=== PATIENT | male | born 1980 | race Caucasian/White ===

== ENCOUNTER 2021-01-06 12:56 | Emergency (ER) | payer BC, MEDICAID ==
[2021-01-06 13:27] LABS: Absolute Neutrophil Ct (ANC) 3.49 (1.4-6.9); BASOPHIL % 0.4 % (0.0-0.4); Basophil (Absolute #) 0.02 (0-0.4); Eosinophil % 3.2 % (0.00-5.0); Eosinophil (Absolute #) 0.17 (0-0.5); Hematocrit 48.6 % (42-50); Hemoglobin 16.2 gm/dl (12.5-18.0); Lymphocyte (Absolute #) 1.21 (1.0-4.6); Lymphocytes % 22.6 % (24.0-44.0); Mean Corpuscular Hgb Concent. 33.3 g/dl (32-36); Mean Platelet Volume 10.3 fl (7.5-11.0); Monocyte (Absolute #) 0.46 (0.0-1.3); Monocytes % 8.6 % (0.0-12.0); Neutrophil % 65.2 % (36.0-66.0); Platelet Count 176 K/mm3 (150-450); Red Cell Distribution Width 13.4 % (11.5-14.0); White Blood Count 5.4 K/mm3 (4.0-10.5)
--- NOTE | 2021-01-06 13:33 | XRAY ---
Indication: Chest/rib pain. Comparison: None Portable apical lordotic chest demonstrates normal heart and lungs. Bony thorax intact.
[2021-01-06 13:48] LABS: ALBUMIN 4.5 g/dL (3.5-5.0); ALKALINE PHOSPHATASE 56 U/L (38-126); ANION GAP 10.5 MEQ/L (5-15); BLOOD UREA NITROGEN 12 mg/dL (9-20); CHLORIDE 101 mmol/L (98-107); Calcium 9.3 mg/dL (8.4-10.2); Carbon Dioxide 29 mmol/L (22-30); Creatinine 1 0.89 mg/dL (0.66-1.25); EST GLOMERULAR FILTRATION RATE > 60.0 ML/MIN; Glucose 123 mg/dL (74-106); LIPASE 99 U/L (23-300); MAGNESIUM 2.1 mg/dL (1.6-2.3); NT PRO BNP 27.3 pg/mL (0-450); Potassium 3.8 mmol/L (3.5-5.1); SGOT/AST 28 U/L (17-59); SGPT/ALT 25 U/L (0-50); SODIUM 136 mmol/L (137-145); Total Protein 7.2 g/dL (6.3-8.2)
--- NOTE | 2021-01-06 13:59 | ERPHSYRPT ---
- History of Present Illness Time Seen by Provider: 01/06/21 13:10 Historian: patient Exam Limitations: no limitations Patient Subjective Stated Complaint: chest pain, rib pain, chest tightness, body aches, worn out Triage Nursing Assessment: pt to ED c/o chest pain at lower chest onset last night, reports tightness/heaviness across chest that started while mowing. pt rates 2/10 and reports the pain radiates "everywhere." c/o body aches and fat igue. heart sounds clear. lungs clear and equal bilaterally. Physician History: Patient is a 40-year-old male, smoker, presents to our ED with complaints of lower chest pain. Pain described as an ache heaviness sensation that is localized. However patient states the pain occasionally radiates everywhere. Patient describes associated body aches with generalized fatigue. Pain started yesterday while mowing. Patient rates the pain 2 out of 10. Symptoms are mild to moderate in intensity. No associated fever. No known Covid exposures. Patient is otherwise healthy. He voices no other complaints or concerns at this time. Timing/Duration: yesterday Activities at Onset: activity Quality: aching, pressure Location: substernal Chest Pain Radiation: abdomen Severity of Pain-Max: moderate Severity of Pain-Current: mild Modifying Factors: Improves With: nothing Associated Symptoms: denies symptoms, No nausea, No vomiting, No palpitations, No cough Prior Chest Pain/Cardiac Workup: no prior chest pain Nitro Today/Relief: no nitro taken today Aspirin Treatment Today: no aspirin today Allergies/Adverse Reactions: No Known Drug Allergies Allergy (Verified 01/06/21 13:15) Home Medications: No Reportable Medications [No Reported Medications] 01/06/21 [History] Hx Tetanus, Diphtheria Vaccination/Date Given: No Hx Influenza Vaccination/Date Given: No Hx Pneumococcal Vaccination/Date Given: No Immunizations Up to Date: No Travel Risk - International Travel Have you traveled outside of the country in past 3 weeks: No - Coronavirus Screening Are you exhibiting any of the following symptoms?: Yes Symptoms: Headaches/Body Aches/Fatigue Close contact with a COVID-19 positive Pt in past 14-21 Days: Yes - Vaccine Status Have you recieved a Covid-19 vaccination: No - Review of Systems Constitutional: No Symptoms, No Fever, No Chills Eyes: No Symptoms Ears, Nose, & Throat: No Symptoms Respiratory: No Symptoms, No Cough, No Dyspnea Cardiac: No Symptoms, No Chest Pain, No Edema, No Syncope Abdominal/Gastrointestinal: No Symptoms, No Abdominal Pain, No Nausea, No Vomiting, No Diarrhea Genitourinary Symptoms: No Symptoms, No Dysuria Musculoskeletal: No Symptoms, No Back Pain, No Neck Pain Skin: No Symptoms, No Rash Neurological: No Symptoms, No Dizziness, No Focal Weakness, No Sensory Changes Psychological: No Symptoms Endocrine: No Symptoms Hematologic/Lymphatic: No Symptoms Immunological/Allergic: No Symptoms All Other Systems: Reviewed and Negative - Past Medical History Pertinent Past Medical History: No - Past Surgical History Past Surgical History: Yes Genitourinary: Other Other Surgical History: kidney stone - Social History Smoking Status: Current every day smoker How long have you smoked: years Exposure to second hand smoke: Yes Drug Use: marijuana, other Patient Lives Alone: No - Nursing Vital Signs Nursing Vital Signs: Initial Vital Signs Temperature 98.7 F 01/06/21 13:03 Pulse Rate 80 01/06/21 13:03 Respiratory Rate 16 01/06/21 13:03 O2 Sat by Pulse Oximetry 97 01/06/21 13:03 Pain Scale Pain Intensity 2 - Physical Exam General Appearance: no apparent distress, alert Eye Exam: PERRL/EOMI, eyes nml inspection Ears, Nose, Throat Exam: normal ENT inspection, TMs normal, pharynx normal, moist mucous membranes Neck Exam: normal inspection, non-tender, supple, full range of motion Respiratory Exam: normal breath sounds, lungs clear, No respiratory distress Cardiovascular Exam: regular rate/rhythm, normal heart sounds Gastrointestinal/Abdomen Exam: soft, No tenderness, No mass Back Exam: normal inspection, No CVA tenderness, No vertebral tenderness Extremity Exam: normal inspection, normal range of motion Neurologic Exam: alert, oriented x 3, cooperative, normal mood/affect, sensation nml, No motor deficits Skin Exam: normal color, warm, dry SpO2 Interpretation: normal SpO2: 95 O2 Delivery: Room Air - Course Nursing assessment & vital signs reviewed: Yes EKG Interpreted by Me: RATE (76), Sinus Rhythm, LAFB, Right Bundle Branch Block - Radiology Exams Chest X-ray Interpretation: Teleradiologist Report (Normal heart lungs. Bony thorax intact.) Ordered Tests: Active Orders 24 hr Category Date Time Status AMA [Release AMA] OM.NOW Care 01/06/21 15:46 Ordered Fryline Attendant STAT Care 01/06/21 13:02 Active EKG-ER Only STAT Care 01/06/21 13:01 Active IV Insertion STAT Care 01/06/21 13:01 Active Pulse Oximetry (ED) STAT Care 01/06/21 13:01 Active CHEST 1 VIEW (PORTABLE) Stat Exams 01/06/21 13:01 Completed CBC W DIFF Stat Lab 01/06/21 13:25 Completed CK (IN-HOUSE) [CK-Creatinine Phosphokinase] Stat Lab 01/06/21 13:59 Completed CMP Stat Lab 01/06/21 13:25 Completed D-DIMER QUANTITATIVE Stat Lab 01/06/21 13:25 Completed LIPASE Stat Lab 01/06/21 13:25 Completed MAGNESIUM Stat Lab 01/06/21 13:25 Completed NT PRO BNP Stat Lab 01/06/21 13:25 Completed TROPONIN Q3H Lab 01/06/21 13:25 Completed TROPONIN Q3H Lab 01/06/21 16:15 Ordered TROPONIN Q3H Lab 01/06/21 19:15 Ordered TROPONIN Q3H Lab 01/06/21 22:15 Ordered TROPONIN Q3H Lab 01/07/21 01:15 Ordered UA W/RFX UR CULTURE Stat Lab 01/06/21 14:12 Completed Urine Triage Profile Stat Lab 01/06/21 14:12 Completed Medication Summary Discontinued Medications Generic Name Dose Route Start Last Admin Trade Name Freq PRN Reason Stop Dose Admin Al Hydrox/Mg Hydrox/Simethicone Confirm 01/06/21 14:07 Maalox Es 30 Ml Unit Dose Administered 01/06/21 14:08 Dose 30 ml .ROUTE .STK-MED ONE Lidocaine HCl Confirm 01/06/21 14:07 Xylocaine Hcl Viscous * Administered 01/06/21 14:08 Dose 15 ml .ROUTE .STK-MED ONE Magnesium Hydroxide 45 ml 01/06/21 14:06 01/06/21 14:09 Gi Cocktail 45 Ml (Maalox/Lidocaine) PO 01/06/21 14:07 45 ml STAT ONE Administration Lab/Rad Data: Laboratory Result Diagrams 01/06/21 13:25 01/06/21 13:25 Laboratory Results 01/06/21 01/06/21 01/06/21 Range/Units 14:12 14:12 13:59 WBC (4.0-10.5) K/mm3 RBC (4.1-5.6) M/mm3 Hgb (12.5-18.0) gm/dl Hct (42-50) % MCV (78-100) fl MCH (26-32) pg MCHC (32-36) g/dl RDW (11.5-14.0) % Plt Count (150-450) K/mm3 MPV (7.5-11.0) fl Gran % (36.0-66.0) % Eos # (Auto) (0-0.5) Absolute Lymphs (auto) (1.0-4.6) Absolute Monos (auto) (0.0-1.3) Lymphocytes % (24.0-44.0) % Monocytes % (0.0-12.0) % Eosinophils % (0.00-5.0) % Basophils % (0.0-0.4) % Absolute Granulocytes (1.4-6.9) Basophils # (0-0.4) D-Dimer (215-500) ng/mL Sodium (137-145) mmol/L Potassium (3.5-5.1) mmol/L Chloride (98-107) mmol/L Carbon Dioxide (22-30) mmol/L Anion Gap (5-15) MEQ/L BUN (9-20) mg/dL Creatinine (0.66-1.25) mg/dL Estimated GFR ML/MIN Glucose (74-106) mg/dL Calcium (8.4-10.2) mg/dL Magnesium (1.6-2.3) mg/dL Total Bilirubin (0.2-1.3) mg/dL AST (17-59) U/L ALT (0-50) U/L Alkaline Phosphatase (38-126) U/L Creatine Kinase 263 H (55-170) U/L Troponin I (0.000-0.034) ng/mL NT-Pro-B Natriuret Pep (0-450) pg/mL Serum Total Protein (6.3-8.2) g/dL Albumin (3.5-5.0) g/dL Lipase (23-300) U/L Urine Color YELLOW (YELLOW) Urine Appearance CLEAR (CLEAR) Urine pH 6.0 (5-6) Ur Specific [place] 1.009 (1.005-1.025) Urine Protein NEGATIVE (Negative) Urine Ketones NEGATIVE (NEGATIVE) Urine Blood NEGATIVE (0-5) Fritz/ul Urine Nitrite NEGATIVE (NEGATIVE) Urine Bilirubin NEGATIVE (NEGATIVE) Urine Urobilinogen NEGATIVE (0-1) mg/dL Ur Leukocyte Esterase NEGATIVE (NEGATIVE) Urine WBC (Auto) NONE (0-5) /HPF Urine RBC (Auto) NONE (0-2) /HPF U Epithel Cells (Auto) NONE (FEW) /HPF Urine Bacteria (Auto) NONE (NEGATIVE) /HPF Urine Mucus (Auto) SLIGHT (NEGATIVE) /HPF Urine Culture Reflexed NO (NO) Urine Glucose NEGATIVE (NEGATIVE) mg/dL Urine Opiates Level POSITIVE (NEGATIVE) Ur Methadone NEGATIVE (NEGATIVE) Urine Barbiturates NEGATIVE (NEGATIVE) Ur Phencyclidine (PCP) NEGATIVE (NEGATIVE) Urine Amphetamine POSITIVE (NEGATIVE) U Benzodiazepine Level NEGATIVE (NEGATIVE) Urine Cocaine NEGATIVE (NEGATIVE) Urine Marijuana (THC) POSITIVE (NEGATIVE) 01/06/21 01/06/21 01/06/21 Range/Units 13:25 13:25 13:25 WBC (4.0-10.5) K/mm3 RBC (4.1-5.6) M/mm3 Hgb (12.5-18.0) gm/dl Hct (42-50) % MCV (78-100) fl MCH (26-32) pg MCHC (32-36) g/dl RDW (11.5-14.0) % Plt Count (150-450) K/mm3 MPV (7.5-11.0) fl Gran % (36.0-66.0) % Eos # (Auto) (0-0.5) Absolute Lymphs (auto) (1.0-4.6) Absolute Monos (auto) (0.0-1.3) Lymphocytes % (24.0-44.0) % Monocytes % (0.0-12.0) % Eosinophils % (0.00-5.0) % Basophils % (0.0-0.4) % Absolute Granulocytes (1.4-6.9) Basophils # (0-0.4) D-Dimer < 215 L (215-500) ng/mL Sodium 136 L (137-145) mmol/L Potassium 3.8 (3.5-5.1) mmol/L Chloride 101 (98-107) mmol/L Carbon Dioxide 29 (22-30) mmol/L Anion Gap 10.5 (5-15) MEQ/L BUN 12 (9-20) mg/dL Creatinine 0.89 (0.66-1.25) mg/dL Estimated GFR > 60.0 ML/MIN Glucose 123 H (74-106) mg/dL Calcium 9.3 (8.4-10.2) mg/dL Magnesium 2.1 (1.6-2.3) mg/dL Total Bilirubin 0.50 (0.2-1.3) mg/dL AST 28 (17-59) U/L ALT 25 (0-50) U/L Alkaline Phosphatase 56 (38-126) U/L Creatine Kinase (55-170) U/L Troponin I < 0.012 (0.000-0.034) ng/mL NT-Pro-B Natriuret Pep 27.3 (0-450) pg/mL Serum Total Protein 7.2 (6.3-8.2) g/dL Albumin 4.5 (3.5-5.0) g/dL Lipase 99 (23-300) U/L Urine Color (YELLOW) Urine Appearance (CLEAR) Urine pH (5-6) Ur Specific [place] (1.005-1.025) Urine Protein (Negative) Urine Ketones (NEGATIVE) Urine Blood (0-5) Fritz/ul Urine Nitrite (NEGATIVE) Urine Bilirubin (NEGATIVE) Urine Urobilinogen (0-1) mg/dL Ur Leukocyte Esterase (NEGATIVE) Urine WBC (Auto) (0-5) /HPF Urine RBC (Auto) (0-2) /HPF U Epithel Cells (Auto) (FEW) /HPF Urine Bacteria (Auto) (NEGATIVE) /HPF Urine Mucus (Auto) (NEGATIVE) /HPF Urine Culture Reflexed (NO) Urine Glucose (NEGATIVE) mg/dL Urine Opiates Level (NEGATIVE) Ur Methadone (NEGATIVE) Urine Barbiturates (NEGATIVE) Ur Phencyclidine (PCP) (NEGATIVE) Urine Amphetamine (NEGATIVE) U Benzodiazepine Level (NEGATIVE) Urine Cocaine (NEGATIVE) Urine Marijuana (THC) (NEGATIVE) 01/06/21 Range/Units 13:25 WBC 5.4 (4.0-10.5) K/mm3 RBC 5.40 (4.1-5.6) M/mm3 Hgb 16.2 (12.5-18.0) gm/dl Hct 48.6 (42-50) % MCV 90.0 (78-100) fl MCH 30.0 (26-32) pg MCHC 33.3 (32-36) g/dl RDW 13.4 (11.5-14.0) % Plt Count 176 (150-450) K/mm3 MPV 10.3 (7.5-11.0) fl Gran % 65.2 (36.0-66.0) % Eos # (Auto) 0.17 (0-0.5) Absolute Lymphs (auto) 1.21 (1.0-4.6) Absolute Monos (auto) 0.46 (0.0-1.3) Lymphocytes % 22.6 L (24.0-44.0) % Monocytes % 8.6 (0.0-12.0) % Eosinophils % 3.2 (0.00-5.0) % Basophils % 0.4 (0.0-0.4) % Absolute Granulocytes 3.49 (1.4-6.9) Basophils # 0.02 (0-0.4) D-Dimer (215-500) ng/mL Sodium (137-145) mmol/L Potassium (3.5-5.1) mmol/L Chloride (98-107) mmol/L Carbon Dioxide (22-30) mmol/L Anion Gap (5-15) MEQ/L BUN (9-20) mg/dL Creatinine (0.66-1.25) mg/dL Estimated GFR ML/MIN Glucose (74-106) mg/dL Calcium (8.4-10.2) mg/dL Magnesium (1.6-2.3) mg/dL Total Bilirubin (0.2-1.3) mg/dL AST (17-59) U/L ALT (0-50) U/L Alkaline Phosphatase (38-126) U/L Creatine Kinase (55-170) U/L Troponin I (0.000-0.034) ng/mL NT-Pro-B Natriuret Pep (0-450) pg/mL Serum Total Protein (6.3-8.2) g/dL Albumin (3.5-5.0) g/dL Lipase (23-300) U/L Urine Color (YELLOW) Urine Appearance (CLEAR) Urine pH (5-6) Ur Specific [place] (1.005-1.025) Urine Protein (Negative) Urine Ketones (NEGATIVE) Urine Blood (0-5) Fritz/ul Urine Nitrite (NEGATIVE) Urine Bilirubin (NEGATIVE) Urine Urobilinogen (0-1) mg/dL Ur Leukocyte Esterase (NEGATIVE) Urine WBC (Auto) (0-5) /HPF Urine RBC (Auto) (0-2) /HPF U Epithel Cells (Auto) (FEW) /HPF Urine Bacteria (Auto) (NEGATIVE) /HPF Urine Mucus (Auto) (NEGATIVE) /HPF Urine Culture Reflexed (NO) Urine Glucose (NEGATIVE) mg/dL Urine Opiates Level (NEGATIVE) Ur Methadone (NEGATIVE) Urine Barbiturates (NEGATIVE) Ur Phencyclidine (PCP) (NEGATIVE) Urine Amphetamine (NEGATIVE) U Benzodiazepine Level (NEGATIVE) Urine Cocaine (NEGATIVE) Urine Marijuana (THC) (NEGATIVE) - Progress Progress: improved Air Movement: good Progress Note: Patient reassessed. Patient monitored throughout his stay. It was observed that his heart rate would change from 70s to the 30s. In light of patient's chest pain and abnormal vitals and abnormal EKG we decided to admit for further evaluation. Case discussed with Dr. Rangel. Dr. Rangel is our no doc for today. We decided the patient will require a cardiology evaluation. We decided the patient should be transferred. Plan of care discussed with patient. Patient declined transfer. Patient declined admission. Patient stated he had other things to take care of and did not want to be admitted. Patient is of sound mind. Patient is appropriate to make informed and independent medical decisions. Patient understands that leaving AGAINST MEDICAL ADVICE can result in delayed diagnosis, increased risk of morbidity, mortality, short and long-term disability including . In spite of these risks, patient has decided to leave AGAINST MEDICAL ADVICE. Patient understands that he may return to our ED at any point if he or she reconsiders. Patient agrees to follow-up with his primary care doctor within 48 hours for reevaluation. Patient voices no other complaints or concerns at this time. We will release patient AGAINST MEDICAL ADVICE per their request. Patient left our ED prior to administration of aspirin and nitroglycerin. Portions of this note were created with voice recognition technology. There may be grammatical, spelling, punctuation or sound alike errors 01/06/21 15:48 01/06/21 15:52 Blood Culture(s) Obtained: No Antibiotics given: No Discussed with Dr.: Luis Antonio (Spoke to Dr. Rangel about the possibility of admitting to our facility for bradycardia however we decided that patient will require a formal cardiology evaluation. We decided the patient should be transferred.) Will see patient in: other Counseled pt/family regarding: lab results, diagnosis, need for follow-up, rad results - Departure Departure Disposition: AMA Clinical Impression: Bradycardia, Chest pain, Myalgia, Elevated CK Condition: Stable Critical Care Time: No Referrals: BRIANA BECKWITH [Primary Care Provider] - Additional Instructions: Discharge/Care Plan ROSAS NAVAS was seen on 01/06/21 in the Emergency Room. The patient was counseled regarding Diagnosis,Lab results, Imaging studies, need for follow up and when to return to the Emergency Room. Prescriptions given: Discharge Note I have spoken with the patient and/or caregivers. I have explained the patient's condition, diagnosis and treatment plan based on the information available to me at this time. I have answered the patient's and/or caregiver's questions and addressed any concerns. The patient and/or caregivers have as good understanding of the patient's diagnosis, condition and treatment plan as can be expected at this point. The vital signs have been stable. The patient's condition is stable and appropriate for discharge from the emergency department. The patient will pursue further outpatient evaluation with the primary care physician or other designated or consulting physician as outlined in the dischar ge instructions. The patient and/or caregivers are agreeable to this plan of care and follow-up instructions have been explained in detail. The patient and/or caregivers have received these instruction. The patient/and or caregivers are aware that any significant change in condition or worsening of symptoms should prompt an immediate return to this or the closest emergency department or call 911.
[2021-01-06] MEDS ORDERED: MAALOX ES 30 ML UNIT DOSE ONE (14:07)
[2021-01-06] MEDS ORDERED: XYLOCAINE HCl Viscous ONE (14:07)
[2021-01-06] MEDS: GI COCKTAIL 45 ML (Maalox/Lidocaine) PO ONE (14:09)
[2021-01-06 14:26] LABS: Appearance CLEAR (CLEAR); Bilirubin NEGATIVE (NEGATIVE); Blood NEGATIVE Ery/ul (0-5); Glucose NEGATIVE (NEGATIVE); Ketones NEGATIVE (NEGATIVE); Leukocyte Esterase NEGATIVE (NEGATIVE); Mucus SLIGHT /HPF (NEGATIVE); Nitrite NEGATIVE (NEGATIVE); Protein,Urine Dip NEGATIVE (Negative); Specific Gravity 1.009 (1.005-1.025); Urobilinogen NEGATIVE mg/dL (0-1)
[2021-01-06 14:35] LABS: Amphetamine,Urine POSITIVE (NEGATIVE); Barbiturate,Urine NEGATIVE (NEGATIVE); Benzodiazepine,Urine NEGATIVE (NEGATIVE); Cocaine,Urine NEGATIVE (NEGATIVE); Methadone,Urine NEGATIVE (NEGATIVE); Opiate,Urine POSITIVE (NEGATIVE); PCP,Urine NEGATIVE (NEGATIVE); THC,Urine POSITIVE (NEGATIVE)
[2021-01-06 15:05] VITALS: BP 124/72; PULSE 50; O2SAT 95
== END 2021-01-06 15:45 | disposition left against medical advice (07) ==
LOC: ED 12:56
DX: R00.1 Bradycardia, unspecified (principal); M79.10 Myalgia, unspecified site; R07.9 Chest pain, unspecified; R74.8 Abnormal levels of other serum enzymes
CPT/HCPCS: 36000; 36415; 71045; 80053; 80307; 81001; 82550; 83690; 83735; 83880; 84484; 85025; 85379; 93005; 93041; 94760; 99284; A9270-GY